=== PATIENT | female | born 1985 | race Caucasian/White ===

== ENCOUNTER 2018-06-03 08:26 | Emergency (ER) | payer MEDICAID ==
[~2018-06-03] VITALS: Ht 157.5 cm; Wt 65.1 kg
[2018-06-03 08:30] VITALS: Ht 157.5 cm; Wt 65.1 kg
[2018-06-03] MEDS ORDERED: predniSONE 20 MG TAB PO STA (08:46)
[2018-06-03] MEDS ORDERED: ALBUTEROL 0.5% (NEB) 2.5 MG/0.5 ML AMP INH STA (08:46)
[2018-06-03] MEDS ORDERED: IPRATROPIUM (NEB) 0.5 MG/2.5 ML AMP NEB STA (08:46)
--- NOTE | 2018-06-03 09:10 | ERD ---
ER Documentation Chief Complaint Chief Complaint cough and sore throat HPI Patient is a 33-year-old female with history of asthma who presents the ER for concerns of a sore throat and cough for the last 2-3 days. Patient states her cough is dry in nature. Patient denies any hemoptysis. Patient states she has some wheezing. Patient states she has been using her albuterol inhaler which does help intermittently however wheezing returns. Patient reports using inhaler prior to arrival. Patient denies any shortness of breath or chest pain. Patient denies any nausea, vomiting, abdominal pain, neck pain, neck stiffness. Patient denies any fevers or chills. No recent travel. No sick contacts. ROS All systems reviewed and are negative except as per history of present illness. Medications Home Meds Active Scripts Prednisone* (Prednisone*) 20 Mg Tab, 40 MG PO DAILY for 4 Days, #4 TAB Prov:REGINA DUQUE PA-C 06/03/18 Dextromethorphan Hb-Promethazine Hcl* (Promethazine DM* Syrup) 473 Ml Syrup, 5 ML PO Q6 PRN for COUGH, #4 OZ Prov:REGINA DUQUE PA-C 06/03/18 Albuterol Sulfate* (Proair HFA*) 8.5 Gm Hfa.aer.ad, 2 PUFF INH Q6, #1 INHALER Prov:REGINA DUQUE PA-C 06/03/18 Allergies Allergies: Coded Allergies: Pork/Porcine Containing Products (Verified Allergy, Intermediate, 02/06/14) Uncoded Allergies: red meat (Allergy, Intermediate, 02/06/14) PMhx/Soc Hx Alcohol Use: No Hx Substance Use: No Hx Tobacco Use: No Smoking Status: Never smoker FmHx Family History: No diabetes Physical Exam Vitals Vital Signs Date Temp Pulse Resp B/P (MAP) Pulse Ox O2 O2 Flow FiO2 Time Delivery Rate 06/03/18 97.6 106 20 105/63 97 11:30 (77) 06/03/18 117 20 97 09:24 06/03/18 97.7 118 20 114/75 97 08:30 (88) Physical Exam GENERAL: Well-developed, well-nourished female. Appears in no acute distress. Speaking in full sentences HEAD: Normocephalic, atraumatic. No deformities or ecchymosis. EYE: Pupils equal, round, and reactive to light. EOMs intact. No conjunctival erythema. No eye discharge. ENT: External ear without any masses or tenderness.. Nasal mucosa pink with no discharge. Oropharynx is pink without any tonsillar erythema or exudates. No uvula deviation. No kissing tonsils. NECK: Supple. No meningismus. Normal ROM of the neck. LUNG: Bilateral expiratory wheezing noted. No abdominal retractions, no nasal flaring, no tripoding . HEART: Regular rate and rhythm. No murmurs, rubs or gallops. EXTREMITES: Equal pulses bilaterally. No peripheral clubbing, cyanosis or edema. No unilateral leg swelling. NEUROLOGIC: Alert and oriented to person, place and time. Moving all four extremities. 5/5 strength in all extremities. Normal speech. Steady gait. SKIN: Normal color. Warm and dry. No rashes or lesions. Results 24 hrs Current Medications Medications Dose Sig/Iris Start Time Status Last (Trade) Ordered Route PRN Stop Time Admin Dose Reason Admin Ipratropium 1 mg ONCE STAT 06/03/18 DC 06/03/18 [place] NEB 08:46 06/03/18 09:23 (Atrovent 08:48 0.02% (Neb)) Albuterol 10 mg ONCE STAT 06/03/18 DC 06/03/18 (Proventil INH 08:46 06/03/18 09:23 0.5% (Neb)) 08:48 Prednisone 40 mg ONCE STAT 06/03/18 DC 06/03/18 (Prednisone) PO 08:46 06/03/18 08:54 08:48 Procedures/MDM ED COURSE: The patient was stable throughout ED course. I kept the patient and/or family informed of laboratory and diagnostic imaging results throughout the ED course. DIAGNOSTIC IMAGING: Read by radiologist. Patient: APARNA BRUSH : 1985 Age: 33 Sex: F MR #: [id number] DOS: 06/03/18 1025 Ordering MD: REGINA DUQUE PA-C Location: [facility] Room/Bed: PROCEDURE: XR Chest PA CLINICAL INDICATION: Cough TECHNIQUE: An PA radiograph of the chest was submitted. COMPARISON: None. FINDINGS: Cardiovascular: The cardiovascular silhouette appears unremarkable. Lung Mortensen: The lung mortensen appear clear with no nodule, alveolar infiltrate, or interstitial prominence evident. Pleural Spaces: There is no pneumothorax or pleural fluid accumulation evident. Osseous Structures: The osseous structures appear intact. Soft Tissues: The soft tissues appear unremarkable. IMPRESSION: Unremarkable PA chest. Physician Fritz Date Time Electronically viewed and signed by Physician Fritz on 06/03/2018 10:56 RH/ CC: REGINA DUQUE PA-C [phone] MEDICAL DECISION MAKING: Patient is a 33-year-old female with a history of asthma presents ER for concerns of sore throat and cough times 2-3 days.. Vital signs were reviewed. Patient was afebrile. Patient was not hypoxic. On exam did reveal bilateral expiratory wheezing. Patient had no abdominal retractions, nasal flaring, no tripoding, no signs of acute respiratory distress. Patient was given albuterol breathing treatment times 1 hour as well as ipratropium. Patient was also given prednisone 40 mg p.o. Upon repeat examination, patient had improvement in sy mptoms. Patient felt as if she could breathe better. Chest x-ray was unremarkable. See formal report above. At this time, the patient's presentation was consistent with acute asthma exacerbation secondary to viral URI. Low suspicion for ACS, aortic dissection, CHF, TB, PE, pneumonia, meningitis, sinusitis, otitis externa, acute otitis media, strep pharyngitis, epiglottitis or peritonsillar abscess. Patient's tachycardia was improving prior to discharge. Tachycardia likely due to recent albuterol use. Patient was nontoxic, non-ill appearing prior to discharge. PRESCRIPTIONS: Promethazine DM, prednisone, albuterol inhaler DISCHARGE: At this time, patient is stable for discharge and outpatient management. Supportive therapies such as OTC throat lozenges, salt water gurgles, popsicles and jello discussed. I have instructed the patient to follow-up with his/her primary care physician in 1-2 days. I have instructed the patient to promptly return to the ER for any new or worsening symptoms including increased pain, swelling, fever, nausea, vomiting, weakness or difficulty breathing. The patient and/or family expressed understanding of and agreement with this plan. All questions were answered. Home care instructions were provided. Disclaimer: Inadvertent spelling and grammatical errors are likely due to EHR/dictation software use and do not reflect on the overall quality of patient care. Also, please note that the electronic time recorded on this note does not necessarily reflect the actual time of the patient encounter. Departure Diagnosis: Primary Impression: Asthma attack Asthma severity: unspecified severity Asthma persistence: unspecified Qualified Codes: J45.901 - Unspecified asthma with (acute) exacerbation Additional Impression: Upper respiratory infection URI type: unspecified URI Qualified Codes: J06.9 - Acute upper respiratory infection, unspecified Condition: Fair Patient Instructions: Preventing Common Respiratory Infections, Asthma, Acute (Adult) Additional Instructions: Llame al doctor MAANA y natalie deann LENCHO PARA DENTRO DE 1-2 VERDUZCO.Dgale a la secretaria que nosotros le instruimos hacer esta lencho.Avise o llame si szymanski condicin se empeora antes de la lencho. Regresa aqui si peor o no mejor. REGINA DUQUE PA-C Jun 03, 2018 09:10
[2018-06-03] MEDS ORDERED: D-ME473S2 PO (11:08)
[2018-06-03] MEDS ORDERED: PRED20TA PO (11:08)
[2018-06-03] MEDS ORDERED: ALBU8.5H8 INH (11:08)
[2018-06-03 11:30] VITALS: BP 105/63; PULSE 106; RESP 20
== END 2018-06-03 11:32 | disposition home or self-care (01) ==
LOC: FTE 08:26
DX: J45.901 Unspecified asthma with (acute) exacerbation (principal); J06.9 Acute upper respiratory infection, unspecified
CPT/HCPCS: 71045; 94644; J7512; Z7502; Z7610

== ENCOUNTER 2018-10-29 09:22 | Emergency (ER) | payer MEDICAID ==
[~2018-10-29] VITALS: Ht 160 cm; Wt 65.7 kg
[~2018-10-29 09:22] MED LIST: ALBU8.5H8 INH; D-ME473S2 PO; PRED20TA PO
[2018-10-29 09:26] VITALS: BP 130/61; PULSE 112; RESP 20; Ht 160 cm; Wt 65.7 kg
[2018-10-29] MEDS ORDERED: METHYLPREDNISOLONE 125 MG INJ IV STA (10:32)
[2018-10-29] MEDS ORDERED: ALBUTEROL 0.083% (NEB) 2.5 MG/3 ML AMP NEB STA (10:32)
[2018-10-29] MEDS ORDERED: IPRATROPIUM (NEB) 0.5 MG/2.5 ML AMP NEB STA (10:32)
--- NOTE | 2018-10-29 11:08 | ERD ---
ER Documentation Chief Complaint Chief Complaint cough and wheezing since last night hx of asthma HPI 33-year-old female with history of asthma presents with complaint of coughing and wheezing since last night. States that she used her albuterol this morning but she is still having cough and wheezing. In addition she states that she had a sore throat for the past 3 days which she has been taking ibuprofen for. Last dose was 6 AM. Denies drooling, trismus, difficulty swallowing, muffled voice, difficulty breathing, rash, or neck stiffness. Patient denies fever, night sweats, weight loss, fatigue, hemoptysis, wheezing, dyspnea, pleuritic chest pain, or orthopnea. Denies past medical history. Denies allergies. Denies medications. Denies surgeries. Denies alcohol, tobacco, or drug use. ROS All systems reviewed and are negative except as per history of present illness. Medications Home Meds Active Scripts Prednisone* (Prednisone*) 20 Mg Tab, 40 MG PO DAILY for 4 Days, #4 TAB Prov:REGINA DUQUE PA-C 06/03/18 Dextromethorphan Hb-Promethazine Hcl* (Promethazine DM* Syrup) 473 Ml Syrup, 5 ML PO Q6 PRN for COUGH, #4 OZ Prov:REGINA DUQUE PA-C 06/03/18 Albuterol Sulfate* (Proair HFA*) 8.5 Gm Hfa.aer.ad, 2 PUFF INH Q6, #1 INHALER Prov:REGINA DUQUE PA-C 06/03/18 Allergies Allergies: Coded Allergies: Pork/Porcine Containing Products (Verified Allergy, Intermediate, 10/29/18) Uncoded Allergies: red meat (Allergy, Intermediate, 02/06/14) PMhx/Soc Hx Respiratory Disorders: Yes (asthma) Hx Alcohol Use: No Hx Substance Use: No Hx Tobacco Use: No FmHx Family History: No diabetes, No coronary disease, No other Physical Exam Vitals Vital Signs Date Temp Pulse Resp B/P (MAP) Pulse Ox O2 O2 Flow FiO2 Time Delivery Rate 10/29/18 85 20 97 21 10:55 10/29/18 97.8 112 20 130/61 96 09:26 (84) Physical Exam Const: No acute distress Head: Atraumatic Eyes: Normal Conjunctiva ENT: Normal External Ears, Nose and Mouth. Tonsils are nonedematous or erythematous bilaterally with no exudates. Uvula is midline. There are no peritonsilar masses noted. There is no trismus or drooling noted. Neck: Full range of motion. No meningismus. Resp: Clear to auscultation bilaterally. Wheezing heard in lung harrell diffusely. There is no pallor or cyanosis. Cardio: Regular rate and rhythm, no murmurs Abd: Soft, non tender, non distended. Normal bowel sounds Skin: No petechiae or rashes Back: No midline or flank tenderness Ext: No cyanosis, or edema Neur: Awake and alert Psych: Normal Mood and Affect Results 24 hrs Current Medications Medications Dose Sig/Iris Start Time Status Last (Trade) Ordered Route PRN Stop Time Admin Dose Reason Admin Albuterol 7.5 mg ONCE STAT 10/29/18 DC 10/29/18 (Proventil NEB 10:32 10:53 0.083% (Neb)) 10/29/18 10:34 Ipratropium 0.5 mg ONCE STAT 10/29/18 DC 10/29/18 [place] NEB 10:32 10:53 (Atrovent 10/29/18 10:34 0.02% (Neb)) 125 mg ONCE STAT 10/29/18 DC 10/29/18 Methylprednis IV 10:32 10:52 olone Sodium 10/29/18 10:34 Succinate (Solu-Medrol) Procedures/MDM ER Course: Patient given treatment with nebulized albuterol, ipatropium, and steroids. MDM: Due to patient's complaint of sore throat rapid strep was performed. Results were negative. I have low suspicion for epiglottitis, peritonsilar abscess, ludwigs angina, retropharyngeal abscess, or other emergent etiologies based on patients exam and history. In addition, I have low suspicion for st atus asthmaticus due to patient improvment after breathing treatment. I have low suspicion for CHF, pneumonia, aspirated foreign body, pneumothorax, PE, respiratory distress, or other mergent condition based on exam and patient history. In addition, patient does not meet Wells score criteria for D-Dimer. Presentation consistent with asthma exacerbation for which patient was given breathing treatment and steroids in ER. After breathing treatment was finished, patients vitals and exam were WNL and patient stated they felt much better. Patient was discharged with rx for alubuterol and a short course of oral steroids. Patient was also advised that asthma has to be managed on outpatient basis by primary care provider. Patient discharged with strict ER precautions. Patient advised to follow up with PMD. All questions answered at discharge. Departure Diagnosis: Primary Impression: Cough Additional Impressions: Asthma attack Asthma severity: mild Asthma persistence: unspecified Qualified Codes: J45.901 - Unspecified asthma with (acute) exacerbation Viral pharyngitis Condition: Stable SANDY WISE October 29, 2018 11:08
[2018-10-29] MEDS ORDERED: PRED20TA PO (11:12)
[2018-10-29] MEDS ORDERED: ALBU18HF INHALATION (11:12)
== END 2018-10-29 11:38 | disposition home or self-care (01) ==
LOC: FTE 09:22
DX: J45.901 Unspecified asthma with (acute) exacerbation (principal); J02.9 Acute pharyngitis, unspecified
CPT/HCPCS: 87880; 94664; 96374; J2930; Z7502; Z7610